=== PATIENT | male | born 1980 | race Caucasian/White ===

== ENCOUNTER → 2020-02-19 | Outpatient (CLI) | payer OTHER ==
--- NOTE | 2020-02-19 09:18 | KCIC ---
ABDOMEN COMPLETE: 02/19/2020 8:00 AM Indication: 39 years old Male. Increased LFTs. Comparison: None. TECHNIQUE: Sonographic evaluation of the abdomen is performed utilizing grayscale and color Doppler. FINDINGS: Liver: There is diffuse increased echogenicity of the hepatic parenchyma compatible with diffuse hepatocellular disease, most commonly due to steatosis. This decreases the sensitivity of ultrasound for the detection of focal hepatic lesions.. There is hepatopedal flow within the portal venous system. Right hepatic lobe measures 18.8 cm. Biliary system: CBD measures 2 mm. No gallbladder wall thickening or pericholecystic fluid There is no intrahepatic or extrahepatic biliary dilatation. Gallbladder: There is a gallbladder polyp measuring 7 mm x 10 mm. Gallstones are identified within the neck of the gallbladder. . Sonographic Sanchez sign: Negative Pancreas: Poorly visualized Spleen: 13.0 cm. Right kidney: 9.0 x 3.8 x 4.4 cm. No hydronephrosis. Normal echotexture without focal mass or renal calculus. Left kidney: 10.3 x 5.5 x 5.2 cm. No hydronephrosis. Normal echotexture without focal mass or renal calculus. Abdominal aorta and IVC: Poorly visualized Free fluid:None. IMPRESSION: 1. There is a suspected gallbladder polyp measuring approximately 10 mm. Additional gallstones are present without sonographic evidence for acute cystitis. 2. Increased echogenicity of the hepatic parenchyma is suggestive of hepatocellular disease, most commonly hepatic steatosis. This limits evaluation for underlying hepatic masses. Hepatomegaly. 3. Borderline splenomegaly measuring 13.0 cm. Electronically signed by: Radha Liriano MD (02/19/2020 9:14 AM) [id number]
== END | disposition home or self-care (01) ==
LOC: KCIC US 07:57
PROVIDERS: ATTEND Internal Medicine Gastroenterology
DX: R94.5 Abnormal results of liver function studies (principal); K76.0 Fatty (change of) liver, not elsewhere classified; K76.9 Liver disease, unspecified; R16.1 Splenomegaly, not elsewhere classified; K80.20 Calculus of gallbladder without cholecystitis without obstruction
CPT/HCPCS: 76700